=== PATIENT | female | born 1965 | race Two or more races ===

== ENCOUNTER → 2017-04-05 | Outpatient (CLI) | payer OTHER | END | disposition home or self-care (01) | LOC: RADPV 04-03 13:58 | PROVIDERS: ATTEND Legal Medicine | DX: I35.0 Nonrheumatic aortic (valve) stenosis (principal); I34.8 Other nonrheumatic mitral valve disorders; I34.0 Nonrheumatic mitral (valve) insufficiency | CPT/HCPCS: 93306 ==

== ENCOUNTER → 2017-12-03 | Outpatient (CLI) | payer OTHER ==
[~2017-12-03] MED LIST: NITROGLYCERIN 400 MCG/SUBLINGUAL SPRAY 4.9 GM BOTTLE SL ONE; REGADENOSON 0.4 MG/5 ML PF SYRINGE IVP ONE; SESTAMIBI TC99M/UD ISOTOPE 1 EA INJ INJ ONE
[2017-12-03 08:25] VITALS: BP 131/66
[2017-12-03 09:35] VITALS: BP 146/76
[2017-12-03] MEDS: NITROGLYCERIN 400 MCG/SUBLINGUAL SPRAY 4.9 GM BOTTLE SL PRN ×3 (15:20→16:13)
== END | disposition home or self-care (01) ==
LOC: CARDMN 08:06
PROVIDERS: ATTEND Internal Medicine Cardiovascular Disease
DX: I25.89 Other forms of chronic ischemic heart disease (principal)
CPT/HCPCS: 78452; 93017; A9500; J2785